=== PATIENT | female | born 1970 | race Caucasian/White ===

== ENCOUNTER 2024-07-02 09:08 | Emergency (ER) | payer OTHER ==
[~2024-07-02] VITALS: Ht 165.1 cm; Wt 61.2 kg
[2024-07-02 09:13] VITALS: TEMP 98.4
[2024-07-02] MEDS ORDERED: CLINDAMYCIN HC150 MG PO (10:52)
[2024-07-02] MEDS ORDERED: LEVOFLOXACIN500 MG PO (10:52)
[2024-07-02 10:55] VITALS: PULSE 70; RESP 15; O2SAT 100
== END 2024-07-02 10:56 | disposition home or self-care (01) ==
LOC: ER 09:16
DX: S00.81XA Abrasion of other part of head, initial encounter (principal); L03.113 Cellulitis of right upper limb; S80.02XA Contusion of left knee, initial encounter; S80.01XA Contusion of right knee, initial encounter; S40.021A Contusion of right upper arm, initial encounter; S20.214A Contusion of middle front wall of thorax, initial encounter; V29.888A Rider (driver) (passenger) of other motorcycle injured in other specified transport accidents, initial encounter; Y92.488 Other paved roadways as the place of occurrence of the external cause; I10 Essential (primary) hypertension; F17.210 Nicotine dependence, cigarettes, uncomplicated
CPT/HCPCS: 99283